=== PATIENT | male | born 1975 ===

== ENCOUNTER 2017-04-06 22:00 | Emergency (ER) | payer SELFPAY ==
[2017-04-07 01:10] VITALS: BMI 23.3
[2017-04-07 01:15] VITALS: RESP 18
--- NOTE | 2017-04-07 01:46 | ED PDOC ---
HPI: Headache Time Seen by Provider: 04/07/17 01:08 Chief Complaint (Nursing): Headache Chief Complaint (Provider): Headache History Per: Patient History/Exam Limitations: no limitations Onset/Duration Of Symptoms: Days (x1 day) Current Symptoms Are (Timing): Still Present Additional Complaint(s): 42 y/o homeless male presents to the ED complaining of fever, headache x 1 day. Patient is also complaining of body aches. Reports taking ibuprofen with mild relief. Denies nausea, vomiting, diarrhea or any further medical complaints. Past Medical History Reviewed: Historical Data, Nursing Documentation, Vital Signs Vital Signs: Last Vital Signs Temp 101.5 F H 04/07/17 00:31 Pulse 118 H 04/07/17 00:31 Resp 18 04/07/17 00:31 BP 115/73 04/07/17 00:31 Pulse Ox 98 04/07/17 00:31 - Medical History PMH: No Chronic Diseases - Surgical History Surgical History: No Surg Hx - Family History Family History: States: Unknown Family Hx - Social History Current smoker - smoking cessation education provided: No (Unknown if ever smoked) Alcohol: Social Drugs: Denies - Home Medications Home Medications: Ambulatory Orders Medication Instructions Recorded Ibuprofen [Motrin] 600 mg PO Q6H PRN #15 tab 02/04/15 Oseltamivir [Tamiflu] 75 mg PO BID #10 cap 04/07/17 - Allergies Allergies/Adverse Reactions: Allergies Allergy/AdvReac Type Severity Reaction Status Date / Time No Known Allergies Allergy Verified 01/19/15 23:23 Review of Systems ROS Statement: Except As Marked, All Systems Reviewed And Found Negative (A per HPI, otherwise negative) Constitutional: Positive for: Fever, Other (Bodyaches) Neurological: Positive for: Headache Physical Exam - Reviewed Nursing Documentation Reviewed: Yes Vital Signs Reviewed: Yes - Physical Exam Appears: Positive for: Well, Non-toxic, No Acute Distress Head Exam: Positive for: ATRAUMATIC, NORMAL INSPECTION, NORMOCEPHALIC Skin: Positive for: Normal Color, Warm, Dry Eye Exam: Positive for: EOMI, Normal appearance, PERRL ENT: Positive for: Normal ENT Inspection Neck: Positive for: Normal, Painless ROM, Supple Cardiovascular/Chest: Positive for: Regular Rate, Rhythm. Negative for: Murmur Respiratory: Positive for: Normal Breath Sounds. Negative for: Accessory Muscle Use, Respiratory Distress Gastrointestinal/Abdominal: Positive for: Normal Exam, Bowel Sounds, Soft. Negative for: Tenderness Back: Positive for: Normal Inspection Extremity: Positive for: Normal ROM. Negative for: Deformity Neurologic/Psych: Positive for: Alert, Oriented (x3) - ECG O2 Sat by Pulse Oximetry: 98 (RA) Pulse Ox Interpretation: Normal Medical Decision Making Medical Decision Making: Time: 01:11 Initial Impression: 42 y/o male with flu-like symptoms Plan: Acetaminophen 975mg PO Oseltamivir 75mg PO Reevaluation Time: 03:40 Upon provider reevaluation patient is feeling better and has shown improvement in headache. Patient is medically stable, and requires no further treatment in the ED at this time. Patient will be discharged home with Rx for Tamiflu 75mg PO. Counseling was provided and all questions were answered regarding diagnosis. There is agreement to discharge plan. Return if symptoms persist or worsen. Clinical Impression: Influenza like symptoms Scribe Attestation: Documented by Yadira Jama acting as a scribe for Mahesh Donaldson MD. Scribe Attestation: All medical record entries made by the Scribe were at my direction and personally dictated by me. I have reviewed the chart and agree that the record accurately reflects my personal performance of the history, physical exam, medical decision making, and the department course for this patient. I have also personally directed, reviewed, and agree with the discharge instructions and disposition. Disposition - Clinical Impression Clinical Impression: Influenza - Disposition Disposition: Routine/Home Disposition Time: 03:40 Condition: STABLE Prescriptions: Oseltamivir [Tamiflu] 75 mg PO BID #10 cap Instructions: Flu, Adult (DC) Forms: [employer] (Bermudian) Print Language: [id number]
[2017-04-07 03:35] VITALS: BP 98/65; PULSE 101; TEMP 98.4
[2017-04-07 03:45] VITALS: O2SAT 98
== END 2017-04-07 04:00 | disposition home or self-care (01) ==
LOC: H.ER 22:00
DX: J11.1 Influenza due to unidentified influenza virus with other respiratory manifestations (principal)